=== PATIENT | male | born 1965 | race Caucasian/White ===

== ENCOUNTER → 2018-11-19 07:53 | Outpatient (CLI) | payer SELFPAY ==
--- NOTE | 2018-11-19 08:00 | CT_ITS ---
CT heart w calcium score INDICATION: ITS.REASON: HTN ORDERING PHYSICIAN: Referral Provider PATIENT AGE: 53 years COMPARISON: None TECHNIQUE: Axial images are obtained without contrast. Sagittal and coronal reformatted images are reviewed as well. All CT scans at the facility use one or more dose reduction, viz: automated exposure control, ma/kV adjustment per patient size (including targeted exams where dose is matched to indication, i.e. head), or iterative reconstruction technique. FINDINGS: The coronary artery calcium score is 33 indicating mild plaque burden with moderate cardiovascular disease risk. IMPRESSION: The coronary artery calcium score is 33 indicating mild plaque burden with moderate cardiovascular disease risk
== END ==
PROVIDERS: Visit Provider Internal Medicine
DX: I10 Essential (primary) hypertension (principal)
CPT/HCPCS: 75571

== ENCOUNTER → 2020-03-24 14:03 | Outpatient (CLI) | payer OTHER, SELFPAY ==
--- NOTE | 2020-03-24 14:11 | XR_ITS ---
PROCEDURE: XR FOOT WT BEARING RT 3V CLINICAL INDICATION: pain COMPARISON: No exams were available for comparison FINDINGS: No fracture or dislocation. No lytic or blastic change. There is normal mineralization. The joint spaces are well-preserved. No significant degenerative/arthritic changes. No erosive changes evident. Other findings:There is a mildly prominent posterior talar process IMPRESSION: No acute finding. Mildly prominent posterior talar process Dictated by: Ashok Watts MD 03/24/2020 14:43 Electronically signed by Ashok Watts MD in [place] 03/24/2020 14:43
--- NOTE | 2020-03-24 14:11 | XR_ITS ---
PROCEDURE: XR FOOT WT BEARING LT 3V CLINICAL INDICATION: pain COMPARISON: No exams were available for comparison FINDINGS: No fracture or dislocation. No lytic or blastic change. There is normal mineralization. The joint spaces are well-preserved. No significant degenerative/arthritic changes. No erosive changes evident. Other findings:Os trigonum is present IMPRESSION: Negative left foot Dictated by: Ashok Watts MD 03/24/2020 14:44 Electronically signed by Ashok Watts MD in [place] 03/24/2020 14:44
== END ==
PROVIDERS: Visit Provider Podiatrist
DX: M79.672 Pain in left foot (principal); M79.671 Pain in right foot
CPT/HCPCS: 73630

== ENCOUNTER → 2023-03-02 23:18 | Outpatient (CLI) | payer OTHER, SELFPAY ==
[2023-03-02 19:07] LABS: Hemoglobin A1C 6.1 % (4.0-6.0)
[2023-03-02 19:16] LABS: T4 (Thyroxine) 9.1 ug/dl (5.53-11.0)
[2023-03-02 19:30] LABS: Thyroid Stimulating Hormone 0.92 uIU/mL (0.465-4.68)
== END ==
PROVIDERS: PCP Family Medicine; Visit Provider Family Medicine
DX: E03.9 Hypothyroidism, unspecified (principal)
CPT/HCPCS: 83036; 84436; 84443

== ENCOUNTER 2023-09-22 12:05 | Emergency (ER) | payer OTHER, SELFPAY ==
[2023-09-22] VITALS (9 sets, daily range): BP systolic 141–218; BP diastolic 95–120; PULSE 63–86; RESP 16–20; TEMP 36.7; O2SAT 96–98; BMI 33.0
--- NOTE | 2023-09-22 12:10 | ECG_ITS ---
APPROVED REPORT Exam: Resting ECG HR:67 bpm ECG Measurements Heart Rate 67 AXES FL 168 P 49 QRSd 121 QRS -11 QT 387 T 36 QTc 402 Conclusion SINUS RHYTHM POSSIBLE RIGHT VENTRICULAR CONDUCTION DELAY [RSR (QR) IN V1/V2] BORDERLINE ECG UNCONFIRMED REPORT Electronically signed by : Adama Eddy MD 09/23/2023 08:52:55
--- NOTE | 2023-09-22 12:13 | CT_ITS ---
FINAL REPORT TECHNIQUE: Thin section axial CT with IV contrast supplemented with multiplanar reconstruction under CT angiogram protocol. 3-D reconstructions were performed. This study was performed with techniques to keep radiation doses as low as reasonably achievable (ALARA). Individualized dose reduction techniques using automated exposure control or adjustment of mA and/or kV according to the patient''s size were employed. CLINICAL HISTORY: Hypertensive, L face and arm paraesthesias FINDINGS: No aneurysm is seen. Major intracranial vessels are patent without significant stenosis. IMPRESSION: No evidence of significant stenosis. Reviewed, Interpreted and Dictated by Branden Conner III, MD Transcribed by Jennifer Riddle Authenticated and [facility]
--- NOTE | 2023-09-22 12:13 | CT_ITS ---
FINAL REPORT CLINICAL HISTORY: Hypertensive, L face and arm paraesthesias COMPARISON: None FINDINGS: Axial images of the head were obtained without contrast. Coronal reformatted images were also obtained.This study was performed with techniques to keep radiation doses as low as reasonably achievable (ALARA). Individualized dose reduction techniques using automated exposure control or adjustment of mA and/or kV according to the patient's size were employed. There is no evidence of intracranial hemorrhage or mass. The ventricular size is within normal limits. There is no evidence of shift of the midline structures. No abnormal extra axial fluid collection is identified. No skull abnormality is seen on the bone window images. IMPRESSION: No acute intracranial abnormality. Reviewed, Interpreted and Dictated by Branden Conner III, MD Transcribed by Dinora Kinsey Authenticated and [facility]
--- NOTE | 2023-09-22 12:13 | CT_ITS ---
FINAL REPORT TECHNIQUE: Thin section axial CT with IV contrast supplemented with multiplanar reconstruction under CT angiogram protocol. This study was performed with techniques to keep radiation doses as low as reasonably achievable (ALARA). Individualized dose reduction techniques using automated exposure control or adjustment of mA and/or kV according to the patient''s size were employed. NASCET criteria was utilized during interpretation. CLINICAL HISTORY: Hypertensive, L face and arm paraesthesias FINDINGS: Aortic arch: Arch shows no significant narrowing. Great vessel origins are widely patent. Right carotid: No significant stenosis is seen of the cervical common or internal carotid artery. Left carotid: No significant stenosis is seen of the cervical common or internal carotid artery. Vertebral: The vertebral arteries are codominant. No significant stenosis is present. There is a 12 mm right thyroid lobe nodule. IMPRESSION: No significant stenosis. Right thyroid lobe nodule. Recommend follow-up ultrasound to further evaluate. Reviewed, Interpreted and Dictated by Branden Conner III, MD Transcribed by Jennifer Riddle Authenticated and [facility]
--- NOTE | 2023-09-22 12:14 | PC.NURSE ---
FSBS: 126 Manual BP: 182/120
--- NOTE | 2023-09-22 12:15 | ED_ITS ---
Discharge Plan Disposition Patient Disposition: Home, Self-Care Chief Complaint: Neuro Symptoms/Deficit Prescriptions Prescriptions: No Action telmisartan 40 mg tablet 20 mg PO meloxicam [Mobic] 7.5 mg tablet 7.5 mg PO ONCE Qty: 30 2RF diclofenac sodium [Voltaren] 1 % gel 4 g topical QID PRN (Reason: pain) Qty: 30 2RF Rx Instructions: apply to single knee, ankle, foot; gently massage into area; for foot includes sole/toes/top of foot Referrals Follow up/Referrals: Provider,Referral, MD [Primary Care Provider] - See instructions Activity Restrictions/Add. Instructions Additional Instructions/Restrictions: At this time it was felt you are safe to be discharged home. If new or worsening symptoms please do not hesitate to return the emergency department. It was incidentally found that you have a thyroid nodule today (swelling of part of your thyroid that is small), most of these are benign however please follow- up with your family doctor for continued evaluation. For your paresthesias please follow-up with your family doctor as discussed. Talk to family doctor about possible neurology follow-up as well if symptoms persist. Take daily 81 mg aspirin until that time. Clinical Impressions Clinical Impression: Arm paresthesia, left, Facial paresthesia, Thyroid nodule Discharge ED Provider: Adolfo Greenberg General Adult HPI <Alexander Guzman MD - Last Filed: 09/22/23 15:58> General Chief complaint: Neuro Symptoms/Deficit Stated complaint: Possible stroke like symptoms Time Seen by Provider: 09/22/23 12:07 History of Present Illness HPI narrative: Patient is a 58-year-old male with past medical history of hypertension recently started on angiotensin receptor leyla yesterday who presents emergency department for evaluation of paresthesias and feet swelling. Patient has had episodic feet swelling and tingling in his left face and shoulder down his left upper extremity over the last 2 weeks. Patient has had intermittent facial drooping over the years that have spontaneously resolved within 24 to 48 hours without intervention. No weakness. At 10:30 AM this morning patient had resurgence of the tingling of his left face and left upper extremity, took his blood pressure at home with systolic in the 180s causing him to present here for continued evaluation. Related Data Home Medications Medication Instructions Recorded Confirmed telmisartan 40 mg tablet 20 mg PO 03/26/20 03/03/23 Previous Rx's Medication Instructions Recorded diclofenac sodium 1 % topical gel 4 g topical QID PRN pain #30 grams 03/26/20 (Voltaren) meloxicam 7.5 mg tablet (Mobic) 7.5 mg PO ONCE pain #30 tabs 03/26/20 Allergies Allergy/AdvReac Type Severity Reaction Status Date / Time Shellfish Allergy Unknown Uncoded 03/03/23 07:42 PFSH <Alexander Guzman MD - Last Filed: 09/22/23 15:58> [facility] Disclaimer: The information contained in this section may have been updated after the patient was seen, as this information can be updated by other users. Medical History (Updated 09/22/23 @ 15:59 by Alexander Guzman MD) Hx of cholecystitis Social History Smoking Status: Never smoker alcohol intake: current current occupational status: employed Travel in the last 8 weeks: None <Alexander Guzman MD - Last Filed: 09/22/23 15:58> ROS Obtained: Yes Systems reviewed as appropriate & no additional complaints except as documented Physical Exam <Alexander Guzman MD - Last Filed: 09/22/23 15:58> General General appearance: alert and in no apparent distress Head Head exam: atraumatic, normocephalic and other (Prominent bilateral parotid glands, nontender.) Eye Eye exam: Present PERRL and EOMI ENT ENT exam: Present mucous membranes moist Neck Neck exam: Present normal inspection Chest Chest inspection: Present normal inspection and symmetric chest wall rise Respiratory Respiratory exam: Present normal lung sounds bilaterally; Absent respiratory distress Cardiovascular Cardiovascular exam: Present regular rate and normal rhythm Abdominal Exam Abdominal exam: Present soft; Absent tenderness Extremities Exam Extremities exam: Present normal inspection Neurological Exam Neurological exam: Present alert; Absent CN II-XII intact or motor sensory deficit Psychiatric Psychiatric exam: Present normal affect Skin Skin exam: Present warm and dry Medical Decision Making <Alexander Guzman MD - Last Filed: 09/22/23 15:58> Cain Inquiry Pt receiving controlled substance: No Vital Signs: 09/22/23 12:06 09/22/23 12:43 09/22/23 12:56 Temperature 98.1 F Temperature Source Oral Pulse Rate 86 Pulse Rate [Left Radial] 73 Respiratory Rate 16 Blood Pressure 182/120 H 164/107 H Blood Pressure [Right Arm] 218/114 H Blood Pressure Mean 134 Blood Pressure Mean [Right Arm] 148 Blood Pressure Source Manual Cuff/ Auscultation 02 Sat by Pulse Oximetry 98 97 Oxygen Delivery Method Room Air 09/22/23 13:00 09/22/23 13:30 09/22/23 14:00 Temperature Temperature Source Pulse Rate 70 64 72 Pulse Rate [Left Radial] Respiratory Rate Blood Pressure 174/100 H 168/95 H 142/98 H Blood Pressure [Right Arm] Blood Pressure Mean 124 119 Blood Pressure Mean [Right Arm] Blood Pressure Source 02 Sat by Pulse Oximetry 97 97 96 Oxygen Delivery Method Room Air Room Air Room Air 09/22/23 15:30 Temperature Temperature Source Pulse Rate 63 Pulse Rate [Left Radial] Respiratory Rate 20 Blood Pressure 141/111 H Blood Pressure [Right Arm] Blood Pressure Mean 126 Blood Pressure Mean [Right Arm] Blood Pressure Source 02 Sat by Pulse Oximetry 97 Oxygen Delivery Method Lab Data Lab Results 09/22/23 12:08: WBC 6.1, RBC 5.41, Hgb 16.1, Hct 46.8, MCV 86.5, MCH 29.7, MCHC 34.4, RDW 13.2, Plt Count 176, MPV 9.8, Neut % (Auto) 58.9, Lymph % (Auto) 26.4, [place] % (Auto) 6.6, Eos % (Auto) 6.6, Baso % (Auto) 1.5, Neut # (Auto) 3.6, Lymph # (Auto) 1.6, [place] # (Auto) 0.4, Eos # (Auto) 0.4, Baso # (Auto) 0.1, Sodium 137, Potassium 4.0, Chloride 102, Carbon Dioxide 30, Anion Gap 9.0, BUN 10, C reatinine 0.90, Estimated Creat Clear 140, Estimated GFR 87, Est GFR ( Amer) 105, Glucose 118 H, Calcium 9.0, Total Bilirubin 1.4 H, AST 40, ALT 40, Alkaline Phosphatase 61, NT-Pro-B Natriuret Pep < 20.0, Total Protein 7.8, Albumin 4.6, Globulin 3.2, Albumin/Globulin Ratio 1.4 09/22/23 12:08 09/22/23 12:08 Orders (Tests/Meds): ED MEDICATIONS Discontinued Medications Generic Name Dose Route Start Last Admin Trade Name Anette PRN Reason Stop Dose Admin Diphenhydramine HCl 50 mg 09/22/23 12:19 09/22/23 12:21 Diphenhydramine 50mg/Ml Vial IV 09/22/23 12:20 50 mg ONCE ONE Administration Iopamidol 100 ml 09/22/23 12:36 09/22/23 12:37 Iopamidol-370 (76%);100ml Bottle IV 09/22/23 12:37 100 ml ONCE ONE Administration Sodium Chloride 50 ml 09/22/23 12:36 09/22/23 12:36 0.9 % Sodium Chloride 50 Ml Vial IV 09/22/23 12:37 50 ml ONCE ONE Administration Sodium Chloride 10 ml 09/22/23 12:36 09/22/23 12:37 Sodium Chloride 0.9% 10ml Syr (Rad Only) IV 09/22/23 12:37 10 ml ONCE ONE Administration ORDERS Category Date Time Status CT angio head Stat Cat Scan 09/22/23 12:[address] angio neck Stat Cat Scan 09/22/23 12:[address] head/brain wo con Stat Cat Scan 09/22/23 12:13 Completed BNP [Brain Natriuretic Peptide] Stat Lab 09/22/23 12:08 Completed CBC w/Auto Diff [Complete Blood Count Auto Diff] Stat Lab 09/22/23 12:08 Completed CMP [Comprehensive Metabolic Panel] Stat Lab 09/22/23 12:08 Completed Lyme B. burgdorferi PCR Blood Stat Lab 09/22/23 15:40 Received ECG initial Besson Routine Y 09/22/23 12:10 Completed ECG Data Tracing #1: Independently interpreted by me, rate is 67, rhythm is regular, no ST elevation in anatomical contiguous leads, QTc 402 Medical Decision Narrative: In summary patient is a 58-year-old male with past medical history described above who presents emergency department for evaluation of paresthesias and ankle swelling. Patient is hemodynamically stable nontoxic-appearing upon arrival, no facial droop, symmetric strength of upper and lower extremities. Patient does have acute onset paresthesias and is within the stroke window therefore emergent noncontrasted CT scan of the head and CTA of the head and neck will be obtained. Patient has hive allergy to shellfish which will be pretreated with Benadryl, no history of anaphylaxis. Fingerstick nonactionable. With expected lower extremity swelling differential includes CHF, valvular insufficiency, CKD, among others. Initial workup reviewed by me, hematologic labs are nonactionable. Initial NIH is 0. The case was discussed with [facility], given the patient has an NIH of 0 with paresthesias thrombolytics are not indicated at this time. CTA of the head and neck remarkable for a thyroid nodule that was incidental, no acute vascular pathology or critical stenosis. Given this emergent MRI was ordered and conducted, read was pending at time of transfer of care to the oncoming physician, Dr. Greenberg. <Adolfo Greenberg MD - Last Filed: 09/22/23 16:13> Vital Signs: 09/22/23 12:06 09/22/23 12:43 09/22/23 12:56 Temperature 98.1 F Temperature Source Oral Pulse Rate 86 Pulse Rate [Left Radial] 73 Respiratory Rate 16 Blood Pressure 182/120 H 164/107 H Blood Pressure [Right Arm] 218/114 H Blood Pressure Mean 134 Blood Pressure Mean [Right Arm] 148 Blood Pressure Source Manual Cuff/ Auscultation 02 Sat by Pulse Oximetry 98 97 Oxygen Delivery Method Room Air 09/22/23 13:00 09/22/23 13:30 09/22/23 14:00 Temperature Temperature Source Pulse Rate 70 64 72 Pulse Rate [Left Radial] Respiratory Rate Blood Pressure 174/100 H 168/95 H 142/98 H Blood Pressure [Right Arm] Blood Pressure Mean 124 119 Blood Pressure Mean [Right Arm] Blood Pressure Source 02 Sat by Pulse Oximetry 97 97 96 Oxygen Delivery Method Room Air Room Air Room Air 09/22/23 15:30 Temperature Temperature Source Pulse Rate 63 Pulse Rate [Left Radial] Respiratory Rate 20 Blood Pressure 141/111 H Blood Pressure [Right Arm] Blood Pressure Mean 126 Blood Pressure Mean [Right Arm] Blood Pressure Source 02 Sat by Pulse Oximetry 97 Oxygen Delivery Method Lab Data Lab Results 09/22/23 12:08: WBC 6.1, RBC 5.41, Hgb 16.1, Hct 46.8, MCV 86.5, MCH 29.7, MCHC 34.4, RDW 13.2, Plt Count 176, MPV 9.8, Neut % (Auto) 58.9, Lymph % (Auto) 26.4, [place] % (Auto) 6.6, Eos % (Auto) 6.6, Baso % (Auto) 1.5, Neut # (Auto) 3.6, Lymph # (Auto) 1.6, [place] # (Auto) 0.4, Eos # (Auto) 0.4, Baso # (Auto) 0.1, Sodium 137, Potassium 4.0, Chloride 102, Carbon Dioxide 30, Anion Gap 9.0, BUN 10, Creatinine 0.90, Estimated Creat Clear 140, Estimated GFR 87, Est GFR ( Amer) 105, Glucose 118 H, Calcium 9.0, Total Bilirubin 1.4 H, AST 40, ALT 40, Alkaline Phosphatase 61, NT-Pro-B Natriuret Pep < 20.0, Total Protein 7.8, Albumin 4.6, Globulin 3.2, Albumin/Globulin Ratio 1.4 Orders (Tests/Meds): ED MEDICATIONS Discontinued Medications Generic Name Dose Route Start Last Admin Trade Name Freq PRN Reason Stop Dose Admin Diphenhydramine HCl 50 mg 09/22/23 12:19 09/22/23 12:21 Diphenhydramine 50mg/Ml Vial IV 09/22/23 12:20 50 mg ONCE ONE Administration Iopamidol 100 ml 09/22/23 12:36 09/22/23 12:37 Iopamidol-370 (76%);100ml Bottle IV 09/22/23 12:37 100 ml ONCE ONE Administration Sodium Chloride 50 ml 09/22/23 12:36 09/22/23 12:36 0.9 % Sodium Chloride 50 Ml Vial IV 09/22/23 12:37 50 ml ONCE ONE Administration Sodium Chloride 10 ml 09/22/23 12:36 09/22/23 12:37 Sodium Chloride 0.9% 10ml Syr (Rad Only) IV 09/22/23 12:37 10 ml ONCE ONE Administration ORDERS Category Date Time Status CT angio head Stat Cat Scan 09/22/23 12:[address] angio neck Stat Cat Scan 09/22/23 12:[address] head/brain wo con Stat Cat Scan 09/22/23 12:13 Completed BNP [Brain Natriuretic Peptide] Stat Lab 09/22/23 12:08 Completed CBC w/Auto Diff [Complete Blood Count Auto Diff] Stat Lab 09/22/23 12:08 Completed CMP [Comprehensive Metabolic Panel] Stat Lab 09/22/23 12:08 Completed Lyme B. burgdorferi PCR Blood Stat Lab 09/22/23 15:40 Received ECG initial Besson Routine Y 09/22/23 12:10 Completed Medical Decision Narrative: In summary patient is a 58-year-old male with past medical history described above who presents emergency department for evaluation of paresthesias and ankle swelling. Patient is hemodynamically stable nontoxic-appearing upon arrival, no facial droop, symmetric strength of upper and lower extremities. Patient does have acute onset paresthesias and is within the stroke window therefore emergent noncontrasted CT scan of the head and CTA of the head and neck will be obtained. Patient has hive allergy to shellfish which will be pretreated with Benadryl, no history of anaphylaxis. Fingerstick nonactionable. With expected lower ex tremity swelling differential includes CHF, valvular insufficiency, CKD, among others. Initial workup reviewed by me, hematologic labs are nonactionable. Initial NIH is 0. The case was discussed with [facility], given the patient has an NIH of 0 with paresthesias thrombolytics are not indicated at this time. CTA of the head and neck remarkable for a thyroid nodule that was incidental, no acute vascular pathology or critical stenosis. Given this emergent MRI was ordered and conducted, read was pending at time of transfer of care to the oncoming physician, Dr. Greenberg. Dionicio: I assume primary responsibility for this patient after signout from previous physician. Workup independently interpreted. Nonactionable CBC or chemistry. CT head, CTA head and neck negative for any acute pathology. MRI of the head with no acute vascular abnormality or diffusion abnormalities. Because patient at baseline without signs or symptoms of clinical decompensation, deemed appropriate for discharge. Results were relayed to patient who voiced understanding and were agreeable to outpatient management and follow up. At the time of discharge the patient was hemodynamically stable, tolerating PO, and mobilizing appropriately. Recommended he take daily aspirin and follow-up with his family doctor for neurology follow-up as well. Critical Care <Alexander Guzman MD - Last Filed: 09/22/23 15:58> Critical Care Time Critical Care Time: No
[2023-09-22] MEDS: diphenhydrAMINE 50MG/ML VIAL 50 MG IV (12:21)
[2023-09-22 12:23] LABS: Basophils # 0.1 K/mm3 (0-0.2); Basophils % 1.5 % (0.1-2.0); Eosinophils # 0.4 K/mm3 (0.0-0.4); Eosinophils % 6.6 % (0.1-12.0); Hematocrit 46.8 % (42.0-52.0); Hemoglobin 16.1 g/dL (14.1-18.0); Lymphocytes # 1.6 K/mm3 (0.7-4.5); Lymphocytes % 26.4 % (10-50); Mean Corpuscular HGB Conc 34.4 g/dL (31.8-35.4); Mean Corpuscular Hemoglobin 29.7 pg (27.0-31.2); Mean Corpuscular Volume 86.5 fl (80-94); Mean Platelet Volume 9.8 fl (7.4-10.4); Monocytes # 0.4 K/mm3 (0.1-1.0); Monocytes % 6.6 % (1.7-9.3); Neutrophils # 3.6 K/mm3 (1.8-7.8); Neutrophils % 58.9 % (37.0-80.0); Platelet Count 176 K/mm3 (142-424); Red Blood Count 5.41 M/mm3 (4.60-6.20); Red Cell Distribution Width 13.2 % (11.5-17.5); White Blood Count 6.1 K/mm3 (4.8-10.8)
[2023-09-22 12:30] LABS: Alanine Aminotransferase 40 U/L (12-78); Albumin Level 4.6 g/dl (3.5-5.0); Albumin/Globulin Ratio 1.4 (1.1-1.8); Alkaline Phosphatase 61 U/L (38-126); Aspartate Amino Transferase 40 U/L (17-59); Bilirubin,Total 1.4 mg/dl (0.2-1.3); Blood Urea Nitrogen 10 mg/dl (9-20); Carbon Dioxide 30 mmol/L (22.0-30.0); Chloride 102 mmol/L (98-107); Creatinine Clearance Estimated 140 mL/min (50-200); Estimated Glomerular Filt Rate 87 ml/min (>60); GFR (African American) 105 ML/MIN (>60); Globulin 3.2 g/dL (1.3-3.2); Glucose 118 mg/dl (74-100); Sodium 137 mmol/L (136-145); Total Protein,Serum 7.8 g/dl (6.3-8.2)
[2023-09-22] MEDS: 0.9 % SODIUM CHLORIDE 50 ML VIAL IV (12:36)
[2023-09-22] MEDS: IOPAMIDOL-370 (76%);100ML BOTTLE 100 ML IV (12:37)
[2023-09-22] MEDS: SODIUM CHLORIDE 0.9% 10ML SYR (RAD ONLY) 10 ML IV (12:37)
[2023-09-22 12:39] LABS: NT Pro Brain Natriuretic Pep. < 20.0 pg/mL (0-125)
--- NOTE | 2023-09-22 12:48 | PC.NURSE ---
Pt scans power-shared to [facility]
--- NOTE | 2023-09-22 12:56 | PC.NURSE ---
Pt ambulatory to bathroom. Warm blanket provided. No other needs voiced and call light within reach.
--- NOTE | 2023-09-22 13:38 | PC.NURSE ---
Dr. Guzman speaking with Stroke Navigator Nurse practitioner, Pamela Lay.
--- NOTE | 2023-09-22 14:04 | PC.NURSE ---
call made to care mangement for MRI approval.
--- NOTE | 2023-09-22 14:30 | PC.NURSE ---
Pt gone to MRI via wheelchair
--- NOTE | 2023-09-22 14:44 | MR_ITS ---
FINAL REPORT CLINICAL HISTORY: STROKE LIKE SYMPTOMS FINDINGS: Multiplanar MR imaging of the brain was performed without contrast. There is mild age-appropriate atrophy. There are scattered foci of increased T2 signal in the cerebral white matter that have a nonspecific appearance but likely represent mild chronic ischemic/gliotic changes. There is no evidence of intracranial hemorrhage or mass. No abnormal ventricular dilatation is identified. No abnormal extra-axial fluid collection is seen. No abnormality is seen on the diffusion weighted images. The posterior fossa and brainstem are unremarkable. Normal major vessel vascular flow voids are seen. IMPRESSION: Age-appropriate atrophy and mild chronic ischemic/gliotic changes. No acute intracranial abnormality. Reviewed, Interpreted and Dictated by Branden Conner III, MD Transcribed by Jennifer Riddle Authenticated and [facility]
--- NOTE | 2023-09-22 15:11 | PC.NURSE ---
vitals delayed while pt at MRI
--- NOTE | 2023-09-22 15:14 | PC.NURSE ---
Pt returned from RAD
--- NOTE | 2023-09-22 16:18 | PC.NURSE ---
Dr. Greenberg at BS to update pt on results and POC
[2023-09-27 08:15] LABS: Lyme B. burgdorferi PCR Blood Negative (Negative)
== END 2023-09-22 16:31 | disposition home or self-care (01) ==
PROVIDERS: Emergency Medicine; Emergency Provider Emergency Medicine
DX: R20.2 Paresthesia of skin (principal); R60.9 Edema, unspecified; I10 Essential (primary) hypertension
CPT/HCPCS: 70450; 70496; 70498; 70551; 80053; 83880; 85025; 87476; 93005; 96374; 99285; Q9967

== ENCOUNTER 2023-10-06 21:03 | Outpatient (CLI) | payer OTHER, SELFPAY ==
[2023-10-06 18:01] LABS: Basophils # 0.1 K/mm3 (0-0.2); Eosinophils # 0.3 K/mm3 (0.0-0.4); Eosinophils % 6.4 % (0.1-12.0); Hematocrit 42.2 % (42.0-52.0); Hemoglobin 15.1 g/dL (14.1-18.0); Lymphocytes # 1.4 K/mm3 (0.7-4.5); Lymphocytes % 28.5 % (10-50); Mean Corpuscular HGB Conc 35.7 g/dL (31.8-35.4); Mean Corpuscular Hemoglobin 30.5 pg (27.0-31.2); Mean Corpuscular Volume 85.6 fl (80-94); Mean Platelet Volume 10.3 fl (7.4-10.4); Monocytes # 0.3 K/mm3 (0.1-1.0); Monocytes % 5.7 % (1.7-9.3); Neutrophils % 58.3 % (37.0-80.0); Platelet Count 196 K/mm3 (142-424); Red Blood Count 4.93 M/mm3 (4.60-6.20); White Blood Count 5.1 K/mm3 (4.8-10.8)
[2023-10-06 18:09] LABS: Alanine Aminotransferase 40 U/L (12-78); Albumin Level 4.5 g/dl (3.5-5.0); Albumin/Globulin Ratio 1.6 (1.1-1.8); Alkaline Phosphatase 60 U/L (38-126); Anion Gap 13.3 mEq/L (5-15); Aspartate Amino Transferase 35 U/L (17-59); Bilirubin,Total 0.7 mg/dl (0.2-1.3); Blood Urea Nitrogen 9 mg/dl (9-20); Calcium 9.5 mg/dl (8.4-10.2); Carbon Dioxide 28 mmol/L (22.0-30.0); Chloride 104 mmol/L (98-107); Chol/HDL Ratio 6.1 (1-3.5); Cholesterol 226 mg/dl (140-200); Estimated Glomerular Filt Rate 99 ml/min (>60); GFR (African American) 120 ML/MIN (>60); Globulin 2.8 g/dL (1.3-3.2); Glucose 108 mg/dl (74-100); HDL Cholesterol 37 mg/dl (40-60); Potassium 4.3 mmoL/L (3.5-5.1); Sodium 141 mmol/L (136-145); Total Protein,Serum 7.3 g/dl (6.3-8.2); Triglycerides 92 mg/dl (30-150); VLDL Cholesterol 18 mg/dL (0-40)
[2023-10-06 18:20] LABS: Direct LDL Cholesterol 144.18 mg/dL (100-129)
[2023-10-06 18:39] LABS: Prostate Specific Ag Screen 0.5 ng/ml (0.0-4.0)
== END 2023-10-06 23:59 ==
LOC: LAB.DROPOF 21:04
PROVIDERS: PCP Family Medicine; Visit Provider Family Medicine
DX: Z00.00 Encounter for general adult medical examination without abnormal findings (principal); Z79.899 Other long term (current) drug therapy; Z12.5 Encounter for screening for malignant neoplasm of prostate
CPT/HCPCS: 80053; 80061; 85025; G0103

== ENCOUNTER 2024-09-23 10:08 | Outpatient (CLI) | payer OTHER, SELFPAY ==
[2024-09-23 10:50] LABS: Basophils # 0.1 K/mm3 (0-0.2); Basophils % 1.3 % (0.1-2.0); Eosinophils # 0.4 K/mm3 (0.0-0.4); Eosinophils % 7.4 % (0.1-12.0); Hemoglobin 15.3 g/dL (14.1-18.0); Lymphocytes # 1.4 K/mm3 (0.7-4.5); Lymphocytes % 24.5 % (10-50); Mean Corpuscular HGB Conc 34.8 g/dL (31.8-35.4); Mean Corpuscular Hemoglobin 29.1 pg (27.0-31.2); Mean Corpuscular Volume 83.8 fl (80-94); Mean Platelet Volume 11.4 fl (7.4-10.4); Monocytes # 0.4 K/mm3 (0.1-1.0); Monocytes % 7.8 % (1.7-9.3); Neutrophils # 3.3 K/mm3 (1.8-7.8); Neutrophils % 58.6 % (37.0-80.0); Platelet Count 188 K/mm3 (142-424); Red Blood Count 5.25 M/mm3 (4.60-6.20); Red Cell Distribution Width 11.8 % (11.5-17.5); White Blood Count 5.5 K/mm3 (4.8-10.8)
[2024-09-23 11:28] LABS: Hemoglobin A1C 6.7 % (4.0-6.0)
[2024-09-23 11:35] LABS: Direct LDL Cholesterol 193.74 mg/dL (100-129)
[2024-09-23 11:41] LABS: Total Iron Binding Capacity 364 ug/dL (261-462)
[2024-09-23 11:48] LABS: T4 (Thyroxine) 8.5 ug/dl (5.53-11.0)
[2024-09-23 12:00] LABS: 25-OH Vitamin D, Total 37.6 ng/mL (30-100)
[2024-09-23 12:01] LABS: Thyroid Stimulating Hormone 0.94 uIU/mL (0.465-4.68)
[2024-09-23 12:57] LABS: Albumin/Globulin Ratio 1.8 (1.1-1.8); Calcium 9.9 mg/dl (8.4-10.2); Glucose 126 mg/dl (74-100); HDL Cholesterol 58 mg/dl (40-60); Magnesium 1.9 mg/dl (1.6-2.3); VLDL Cholesterol 25 mg/dL (0-40)
[2024-09-23 13:02] LABS: C-Reactive Protein 1.9 mg/L (0-4)
[2024-09-23 14:04] LABS: Albumin Level 4.9 g/dl (3.5-5.0)
[2024-09-23 14:05] LABS: Chloride 100 mmol/L (98-107); Potassium 4.5 mmoL/L (3.5-5.1); Sodium 136 mmol/L (136-145)
[2024-09-23 14:06] LABS: Vitamin B12 743 pg/mL (239-931)
[2024-09-23 14:07] LABS: Alanine Aminotransferase 102 U/L (12-78); Alkaline Phosphatase 61 U/L (38-126); Anion Gap 11.5 mEq/L (5-15); Aspartate Amino Transferase 62 U/L (17-59); Bilirubin,Total 0.8 mg/dl (0.2-1.3); Blood Urea Nitrogen 12 mg/dl (9-20); Carbon Dioxide 29 mmol/L (22.0-30.0); Estimated Glomerular Filt Rate 99 ml/min (>60); GFR (African American) 120 ML/MIN (>60); Globulin 2.7 g/dL (1.3-3.2); Total Protein,Serum 7.6 g/dl (6.3-8.2)
[2024-09-23 14:08] LABS: Chol/HDL Ratio 4.8 (1-3.5); Cholesterol 276 mg/dl (140-200); Iron 123 ug/dL (49-181); Triglycerides 124 mg/dl (30-150)
[2024-09-24 07:13] LABS: Homocyst(e)ine 14.6 umol/L (0.0-14.5)
[2024-09-24 08:14] LABS: DHEA-Sulfate 45.7 ug/dL (48.9-344.2)
== END 2024-09-23 23:59 | disposition home or self-care (01) ==
LOC: LAB 10:09
PROVIDERS: PCP Family Medicine; Visit Provider Family Medicine
DX: Z00.00 Encounter for general adult medical examination without abnormal findings (principal); R06.00 Dyspnea, unspecified; E04.1 Nontoxic single thyroid nodule; Z84.89 Family history of other specified conditions
CPT/HCPCS: 36415; 80053; 80061; 82306; 82607; 82626; 82746; 83036; 83090; 83540; 83550; 83735; 84436; 84443; 85025; 86140

== ENCOUNTER 2024-10-02 08:20 | Outpatient (CLI) | payer OTHER, SELFPAY ==
--- NOTE | 2024-10-02 | CA_ITS ---
APPROVED REPORT Exam: Exercise Treadmill Technologist: Faith Lizama Ht: 6 ft 0 in Wt: 260 lbs BSA: 2.38 m2 HR: 65 bpm BP: 135/90 mmHg Rhythm: SR Medical History Cardiac Risk Factors: FHX of CAD Stress Test Details HR Resting HR: 65 bpm Max Heart Rate (APMHR): 161 bpm Max HR Achieved: 152 bpm Target HR (85% APMHR): 137 bpm % of APMHR: 94 Recovery HR: 113 bpm HR response to stress: Normal HR response to stress BP Resting BP: 135.0/90.0 mmHg Max BP: 223.0/117.0 mmHg Recovery BP: 197.0/101.0 mmHg BP response to stress: Abnormal hypertensive response to stress. ECG Resting ECG: SR Stress EC.[address] depression Arrhythmia: None Clinical Exercise duration: 8:08 min Exercise capacity: 10.3 METs Overall Exercise Capacity for Age: Average Stress ECG Conclusion During theresa protocol pt experinced mild SOA. No arrhythmias noted. ST changes: 0.[address] depression Conclusion: Average exercise capacity. No evidence of ischemia at peak stress on ECG. Myoview images are reported separately. Electronically signed by : Nayla Cueto MD 10/03/2024 11:28:50
[2024-10-02] MEDS: SODIUM CHLORIDE 0.9% 10ML SYR (RAD ONLY) 10 ML IV ×2 (07:50→09:30)
--- NOTE | 2024-10-02 08:21 | US_ITS ---
FINAL REPORT CLINICAL HISTORY: Right Thyroid nodule FINDINGS: Limited sonographic images of the thyroid were obtained. The right lobe of the thyroid measures 5.6 x 1.6 x 2.7 cm. The left lobe of the thyroid measures 5.3 x 1.6 x 2.2 cm. The isthmus measures 6 mm. There are multiple nodules in both lobes of the thyroid. Dominant nodule on the right is solid and isoechoic measuring 1.9 cm consistent with TR 3. Dominant nodule on the left is hypoechoic measuring 1.2 cm consistent with TR 4. Multiple subcentimeter nodules are seen bilaterally. IMPRESSION: Bilateral thyroid nodules as detailed above. Recommend 1 year follow-up. Reviewed, Interpreted and Dictated by Jovani Cabrales MD Transcribed by Jennifer Riddle Authenticated and [facility]
--- NOTE | 2024-10-02 08:21 | US_ITS ---
FINAL REPORT CLINICAL HISTORY: elevated liver enzymes FINDINGS: RIGHT UPPER QUADRANT ULTRASOUND Technique: Ultrasound images of the right upper quadrant were obtained. There is fatty infiltration of the liver. The gallbladder is absent. Common duct is normal. The right kidney is unremarkable. IMPRESSION: Fatty liver. Patient status postcholecystectomy. Reviewed, Interpreted and Dictated by Jovani Cabrales MD Transcribed by Jennifer Riddle Authenticated and [facility]
--- NOTE | 2024-10-02 09:10 | NM_ITS ---
APPROVED REPORT Exam: Nuclear Stress Test Indication: htn, hyperlipidemia, fm hx, sob Patient Location: Outpatient Stress Tech: Faith Lizama [place] Tech:Nupur Guerrero FAITHCristine RT (R)(N)(M) Ht: 6 ft 1 in Wt: 250 lbs HR: 65 bpm BP: 135/90 mmHg BSA: 2.37 m2 TID: 0.99 BMI: 32.9 History: htn, hyperlipidemia, fm hx, sob Procedure: Patient exercised on Pedrito protocol 8:08 minutes and sec, resting heart rate 65 bpm, resting blood pressure 135/90 mmHg, with exercise maximum heart rate achived was 150 bpm which is 94 % of the maximum predicted heart rate and blood pressure was 222/117 mmHg. Test was stopped due to fatigue. Patient denied any complaint of chest pain. Patient has average exercise capacity, achieved 10.3 METs of workload on treadmill, the blood pressure response to exercise was exaggerated. Cardiac Stress and Resting SPECT Images: Cardiac Stress and Resting SPECT images were obtained using technetium 99m Myoview 31.5 mCi stress and 10.89 mCi at rest. Raw images demonstrate significant diaphragmatic overlap with the cardiac borders. This may affect the diagnostic interpretation of the study findings. Resting and stress imaging in supine positions demonstrate a medium sized, mild, tapered perfusion defect in the basal to mid inferior and inferolateral LV mota. This is no longer visualized and prone imaging. Findings are suggestive of diaphragmatic attenuation. Gated imaging demonstrates normal global and regional LV systolic function. LVEF is calculated at 56%. Conclusion: Diaphragmatic attenuation is present. No evidence of fixed or reversible perfusion defects. Gated imaging demonstrates normal global and regional LV systolic function. LVEF is calculated at 56%. Electronically signed by : Nayla Cueto MD 10/03/2024 11:20:29
[2024-10-02] MEDS: ISOTOPE MYOVIEW (PER STUDY) 1 DOSE IV (11:40)
[2024-10-03 06:13] LABS: HBsAg Screen Negative (Negative); HCV Ab Non Reactive (Non Reactive); Hep A Ab, IGM Negative (Negative); Hep B Core Ab, IgM Negative (Negative)
[2024-10-03 13:09] LABS: Adrenocorticotropic Hormone 17.6 pg/mL (7.2-63.3)
== END 2024-10-02 23:59 | disposition home or self-care (01) ==
LOC: RAD 08:21
PROVIDERS: PCP Family Medicine; Visit Provider Family Medicine
DX: E04.1 Nontoxic single thyroid nodule (principal); R74.8 Abnormal levels of other serum enzymes; Z63.9 Problem related to primary support group, unspecified; Z84.89 Family history of other specified conditions
CPT/HCPCS: 36415; 76536; 76705; 78452; 80074; 82024; 93017; 93018; A9502